=== PATIENT | male | born 1945 | race Caucasian/White ===

== ENCOUNTER 2019-06-25 12:12 | Inpatient (IN) | payer MEDICARE ==
[~2019-06-25] VITALS: Ht 180.3 cm; Wt 80.0 kg
[~2019-06-25 12:12] MED LIST: FLEC100T2 PO; LOSA25TA96 PO; OMEP20TA5 PO; RIVA10TA PO
--- NOTE | 2019-06-25 12:30 | NUR ---
pt to CT
--- NOTE | 2019-06-25 12:36 | NUR ---
pt back from CT
--- NOTE | 2019-06-25 12:46 | NUR ---
Dr. Baumann at bedside to armando pt
--- NOTE | 2019-06-25 12:56 | NUR ---
pt is resting quietly on gurney, no neuro deficits, still c/o left arm tingling, steristrips to upper left chest are dry and intact, no swelling, no redness, no drainage, healing well
[2019-06-25 13:01] LABS: BASOPHILS % (AUTO) 0.5 % (0-1); EOSINOPHILS # (AUTO) 0.1 X10'3 (0-0.9); EOSINOPHILS % (AUTO) 1.1 % (0-6); HEMATOCRIT 43.7 % (42.0-52.0); HEMOGLOBIN 15.1 g/dl (14.0-17.9); LYMPHOCYTES # (AUTO) 1.7 X10'3 (1.1-4.8); LYMPHOCYTES % (AUTO) 24.4 % (21-51); MEAN CORPUSCULAR HEMOGLOBIN 31.3 PG (27.0-31.0); MEAN CORPUSCULAR HGB CONC 34.5 g/dL (33.0-36.5); MEAN CORPUSCULAR VOLUME 90.8 FL (78-98); MEAN PLATELET VOLUME 8.4 FL (7.4-10.4); MONOCYTES # (AUTO) 0.6 X10'3 (0-0.9); MONOCYTES % (AUTO) 8.8 % (2-12); NEUTROPHILS # (AUTO) 4.5 X10'3 (1.8-7.7); NEUTROPHILS % (AUTO) 65.2 % (42-75); PLATELET COUNT 238 X10'3 (140-440); RED BLOOD COUNT 4.81 X10'6 (4.70-6.10); RED CELL DISTRIBUTION WIDTH 13.7 % (11.5-14.5); WHITE BLOOD COUNT 6.9 X10'3 (4.5-11.0)
[2019-06-25 13:12] LABS: ALANINE AMINOTRANSFERASE 31 U/L (12-78); ALBUMIN 3.6 G/DL (3.4-5.0); ALKALINE PHOSPHATASE 72 IU/L (46-116); ANION GAP 7 (8-16); ASPARTATE AMINO TRANSFERASE 18 U/L (10-37); BILIRUBIN,TOTAL 1.4 MG/DL (0.1-1.0); BLOOD UREA NITROGEN 14 MG/DL (7-18); BUN/CREATININE RATIO 13.9 (5.4-32.0); CHLORIDE 107 MMOL/L (99-107); CREATININE 1.01 MG/DL (0.60-1.10); GLUCOSE 81 MG/DL (70-104); POTASSIUM 4.3 MMOL/L (3.5-5.1); SODIUM 141 MMOL/L (135-145); TOTAL CARBON DIOXIDE 27.5 MMOL/L (24-32); TOTAL PROTEIN 7.2 G/DL (6.4-8.2); eGFR 72 ML/MIN
[2019-06-25 13:16] LABS: PARTIAL THROMBOPLASTIN TIME 38 SECONDS (22-32)
[2019-06-25 13:18] LABS: TROPONIN I < 0.04 NG/ML (0.0-0.05)
[2019-06-25] MEDS ORDERED: ondansetron/PF 4mg/2ml inj IV PRN (13:45)
[2019-06-25] MEDS ORDERED: mag hydrox/Alum hydrox/simeth 30ml oral suspension PO PRN (13:45)
[2019-06-25] MEDS ORDERED: magnesium hydroxide 30ml (MOM) UD suspension PO PRN (13:45)
[2019-06-25] MEDS ORDERED: acetaminophen 325mg tablet PO PRN (13:45)
[2019-06-25 14:21] LABS: CHOL/HDL RATIO 7.9 (0.00-4.99); CHOLESTEROL 230 MG/DL (0-200); HDL CHOLESTEROL 29 MG/DL (35-60); LDL CHOLESTEROL 168 MG/DL (50-100); TRIGLYCERIDES 268 MG/DL (20-135)
--- NOTE | 2019-06-25 14:38 | NUR ---
Pt arrived on the floor, tucked in. Pt is A & O X4 and in good spirits.
[2019-06-25 15:03] VITALS: BP_SYST 154; BP_SYST 157; BP_SYST 173; BP_DIAS 102; BP_DIAS 103; BP_DIAS 114
[2019-06-25] MEDS: normal saline 1000ml 1,000 ML IV SCH ×2 (15:16→23:42)
[2019-06-25 15:36] VITALS: BP 173/103
[2019-06-25 18:00] VITALS: BP 140/89
--- NOTE | 2019-06-25 18:27 | NUR ---
Problems reprioritized. Patient report given, questions answered & plan of care reviewed with Argelia Finn RN.
[2019-06-25 20:00] VITALS: BP_SYST 117; BP_SYST 119; BP_SYST 126; BP_DIAS 65; BP_DIAS 66; BP_DIAS 68
[2019-06-25] MEDS ORDERED: rivaroxaban 20mg tablet PO SCH (21:00)
--- NOTE | 2019-06-25 22:21 | NUR ---
patient refusing IV fluids at this time. drinking well. left his saline locked. aware.
[2019-06-26 02:09] VITALS: BP 136/85
--- NOTE | 2019-06-26 06:12 | NUR ---
Problems reprioritized. Patient report given, questions answered & plan of care reviewed with GEORGE Pastrana and GEORGE Trejo.
--- NOTE | 2019-06-26 06:37 | NUR ---
Patient in room ORTHO 4017. I have received report from Argelia VAZQUEZ and had the opportunity to ask questions and assume patient care.
[2019-06-26 06:53] VITALS: BP 139/87
[2019-06-26 08:00] VITALS: BP_SYST 107; BP_SYST 110; BP_SYST 114; BP_DIAS 67; BP_DIAS 76; BP_DIAS 77
[2019-06-26] MEDS ORDERED: aspirin 81mg tablet.DR PO SCH (08:00)
[2019-06-26] MEDS ORDERED: atorvastatin 20mg tablet PO SCH (08:00)
[2019-06-26] MEDS: normal saline 1000ml 1,000 ML IV SCH (08:35)
[2019-06-26 10:03] VITALS: BP 114/76
[2019-06-26] MEDS ORDERED: iohexol 350MG/ML 100ml bottle IV ONE (10:03)
[2019-06-26] MEDS ORDERED: ATOR20TA PO (13:41)
[2019-06-26] MEDS ORDERED: ASPI81TA52 PO (13:41)
--- NOTE | 2019-06-26 14:00 | NUR ---
I have reviewed and agree with all interventions and assessments performed and documented by Neil VAZQUEZ.
--- NOTE | 2019-06-26 14:16 | NUR ---
Pt discharged home safely. had all materials with patient with copies of hosp records
== END 2019-06-26 14:05 | disposition home or self-care (01) | DRG 69 ==
LOC: ER 12:13 → ORTHO 4S 14:40
PROVIDERS: ADMIT Family Medicine; ATTEND Family Medicine
PROC: B3251ZZ Computerized Tomography (CT Scan) of Bilateral Common Carotid Arteries using Low Osmolar Contrast (ICD-10-PCS; principal; 2019-06-26)
PROC: B32G1ZZ Computerized Tomography (CT Scan) of Bilateral Vertebral Arteries using Low Osmolar Contrast (ICD-10-PCS; 2019-06-26)
PROC: B3281ZZ Computerized Tomography (CT Scan) of Bilateral Internal Carotid Arteries using Low Osmolar Contrast (ICD-10-PCS; 2019-06-26)
DX: G45.9 Transient cerebral ischemic attack, unspecified (principal); I10 Essential (primary) hypertension; E78.00 Pure hypercholesterolemia, unspecified; I48.91 Unspecified atrial fibrillation; Z86.73 Personal history of transient ischemic attack (TIA), and cerebral infarction without residual deficits; Z95.0 Presence of cardiac pacemaker
CPT/HCPCS: 36415; 70450; 70496; 71045; 80053; 80061; 84484; 85025; 85610; 85730; 87081; 93005; 93880; 97116; 97161; 97530; 99285; G0378; J7030; Q9967

== ENCOUNTER 2019-11-26 17:43 | Inpatient (IN) | payer MEDICARE ==
[~2019-11-26] VITALS: Ht 180.3 cm; Wt 76.4 kg
[~2019-11-26 17:43] MED LIST changes: +ASPI81TA52 PO; +ATOR20TA PO; -FLEC100T2 PO; -OMEP20TA5 PO
--- NOTE | 2019-11-26 18:45 | NUR ---
Dr. Brunner notified blood sugar 62 (stated to give juice), and that patient reports he did not hit head.
[2019-11-26 19:08] LABS: BASOPHILS # (AUTO) 0.1 X10'3 (0-0.2); BASOPHILS % (AUTO) 0.7 % (0-1); EOSINOPHILS # (AUTO) 0.2 X10'3 (0-0.9); EOSINOPHILS % (AUTO) 2.5 % (0-6); HEMATOCRIT 44.9 % (42.0-52.0); HEMOGLOBIN 15.4 g/dl (14.0-17.9); LYMPHOCYTES % (AUTO) 33.7 % (21-51); MEAN CORPUSCULAR HEMOGLOBIN 30.8 PG (27.0-31.0); MEAN CORPUSCULAR HGB CONC 34.3 g/dL (33.0-36.5); MEAN CORPUSCULAR VOLUME 89.9 FL (78-98); MEAN PLATELET VOLUME 8.4 FL (7.4-10.4); MONOCYTES % (AUTO) 10.7 % (2-12); NEUTROPHILS # (AUTO) 4.7 X10'3 (1.8-7.7); NEUTROPHILS % (AUTO) 52.4 % (42-75); PLATELET COUNT 236 X10'3 (140-440); RED BLOOD COUNT 4.99 X10'6 (4.70-6.10); RED CELL DISTRIBUTION WIDTH 13.5 % (11.5-14.5)
[2019-11-26 19:17] LABS: D-DIMER 0.21 MG/L FEU (0-0.50); PARTIAL THROMBOPLASTIN TIME 29 SECONDS (22-32)
--- NOTE | 2019-11-26 19:18 | NUR ---
Lanagan sandwich provided, okay per Dr. Brunner.
[2019-11-26 20:00] LABS: ALANINE AMINOTRANSFERASE 32 U/L (12-78); ALBUMIN 3.9 G/DL (3.4-5.0); ALBUMIN/GLOBULIN RATIO 1.1 (1.1-1.5); ALKALINE PHOSPHATASE 91 IU/L (46-116); ANION GAP 7 (8-16); ASPARTATE AMINO TRANSFERASE 24 U/L (10-37); BLOOD UREA NITROGEN 11 MG/DL (7-18); BUN/CREATININE RATIO 11.2 (5.4-32.0); CALCIUM 9.8 MG/DL (8.5-10.1); CHLORIDE 107 MMOL/L (99-107); CREATININE 0.98 MG/DL (0.60-1.10); GLUCOSE 67 MG/DL (70-104); POTASSIUM 4.3 MMOL/L (3.5-5.1); SODIUM 144 MMOL/L (135-145); TOTAL CARBON DIOXIDE 30.1 MMOL/L (24-32); TOTAL PROTEIN 7.6 G/DL (6.4-8.2); eGFR 74 ML/MIN
[2019-11-26 20:02] LABS: TROPONIN I < 0.04 NG/ML (0.0-0.05)
--- NOTE | 2019-11-26 20:27 | NUR ---
Attempting to complete med rec, patient does not know all medications he takes.
[2019-11-26] MEDS ORDERED: METO25TA6 PO (20:31)
[2019-11-26] MEDS ORDERED: OMEP40CA13 PO (20:33)
--- NOTE | 2019-11-26 20:33 | NUR ---
Able to access prescription history, med rec completed. Patient believes med rec accurate, will notify staff if he can remember any other meds he takes.
[2019-11-26] MEDS ORDERED: iohexol 350MG/ML 100ml bottle IV ONE (22:29)
[2019-11-26] MEDS ORDERED: iohexol 350 MG/ML 50ML vial IV ONE (22:31)
[2019-11-27] VITALS (7 sets, daily range): BP systolic 127–156; BP diastolic 74–100
[2019-11-27] MEDS ORDERED: ATOR20TA PO (00:19)
[2019-11-27] MEDS ORDERED: mag hydrox/Alum hydrox/simeth 30ml oral suspension PO PRN (01:00)
[2019-11-27] MEDS ORDERED: acetaminophen 325mg tablet PO PRN (01:00)
[2019-11-27] MEDS ORDERED: magnesium hydroxide 30ml (MOM) UD suspension PO PRN (01:00)
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
--- NOTE | 2019-11-27 02:00 | NUR ---
Patient arrived to [facility] room 318 via wheelchair with all known belongings. patient ambulated to the bed. 2 RN skin check complete. patient placed on tele box 29. MRSA Nasal collected.
--- NOTE | 2019-11-27 06:00 | NUR ---
Patient in room MED 318. I have received report from GEORGE Templeton and had the opportunity to ask questions and assume patient care.
--- NOTE | 2019-11-27 06:19 | NUR ---
Problems reprioritized. Patient report given, questions answered & plan of care reviewed with GEORGE Pierce.
[2019-11-27] MEDS ORDERED: pantoprazole 40mg Tablet.DR PO PRN (08:00)
--- NOTE | 2019-11-27 11:03 | NUR ---
melina called, needing local rep to interrogate PPM, informed rep will call back with ETA
--- NOTE | 2019-11-27 18:00 | NUR ---
Patient in room MED 310. I have received report from Kari VAZQUEZ and had the opportunity to ask questions and assume patient care.
--- NOTE | 2019-11-27 18:10 | NUR ---
Problems reprioritized. Patient report given, questions answered & plan of care reviewed with GEORGE Altamirano.
--- NOTE | 2019-11-27 18:20 | NUR ---
dr. Yo to discharge, no assessments or interventions performed, report only at shift change
--- NOTE | 2019-11-27 18:58 | NUR ---
REVIEWED ALL DISCHARGE INSTRUCTIONS WITH PATIENT. ALL QUESTIONS ANSWERED. PATIENT GIVEN DISCHARGE PACKET. IV D/C'D, TELE MONITOR D/C'D. ALL BELONGINGS WITH PATIENT ON D/C. PATIENT WALKED OUT BY BOBBY VAZQUEZ.
[2019-11-27] MEDS ORDERED: rivaroxaban 10mg tablet PO SCH (21:00)
[2019-11-27] MEDS ORDERED: losartan 25mg tablet PO SCH (21:00)
--- NOTE | 2019-11-29 15:00 | NUR ---
Case Management DC follow up: Pt number, disconnected. Friend number/no answer, no identifier.
== END 2019-11-27 18:58 | disposition home or self-care (01) | DRG 312 ==
LOC: ER 17:46 → ED HOLD 11-27 01:00 → MED 3N 11-27 01:50
PROVIDERS: ADMIT Internal Medicine; ATTEND Family Medicine
PROC: B3251ZZ Computerized Tomography (CT Scan) of Bilateral Common Carotid Arteries using Low Osmolar Contrast (ICD-10-PCS; principal; 2019-11-26)
PROC: B32G1ZZ Computerized Tomography (CT Scan) of Bilateral Vertebral Arteries using Low Osmolar Contrast (ICD-10-PCS; 2019-11-26)
PROC: B3281ZZ Computerized Tomography (CT Scan) of Bilateral Internal Carotid Arteries using Low Osmolar Contrast (ICD-10-PCS; 2019-11-26)
PROC: B32T1ZZ Computerized Tomography (CT Scan) of Left Pulmonary Artery using Low Osmolar Contrast (ICD-10-PCS; 2019-11-26)
PROC: B3201ZZ Computerized Tomography (CT Scan) of Thoracic Aorta using Low Osmolar Contrast (ICD-10-PCS; 2019-11-26)
PROC: B32S1ZZ Computerized Tomography (CT Scan) of Right Pulmonary Artery using Low Osmolar Contrast (ICD-10-PCS; 2019-11-26)
DX: R55 Syncope and collapse (principal); M79.10 Myalgia, unspecified site; I10 Essential (primary) hypertension; I48.91 Unspecified atrial fibrillation; T44.7X5A Adverse effect of beta-adrenoreceptor antagonists, initial encounter; Z79.01 Long term (current) use of anticoagulants; Z86.73 Personal history of transient ischemic attack (TIA), and cerebral infarction without residual deficits; Z95.0 Presence of cardiac pacemaker; Y92.89 Other specified places as the place of occurrence of the external cause
CPT/HCPCS: 36415; 70450; 70496; 70498; 71045; 71275; 80053; 82948; 84484; 85025; 85379; 85610; 85730; 87081; 93005; 93306; 99285; G0378; Q9967

== ENCOUNTER 2022-10-22 12:53 | Observation (INO) | payer MEDICARE ==
[~2022-10-22] VITALS: Ht 177.8 cm; Wt 79.5 kg
[~2022-10-22 12:53] MED LIST changes: -ASPI81TA52 PO; +OMEP40CA21 PO
[2022-10-22 13:10] LABS: BASOPHILS % (AUTO) 0.3 % (0-1); EOSINOPHILS # (AUTO) 0.2 X10'3 (0-0.9); EOSINOPHILS % (AUTO) 2.5 % (0-6); HEMATOCRIT 44.9 % (42.0-52.0); HEMOGLOBIN 14.8 g/dl (14.0-17.9); LYMPHOCYTES # (AUTO) 2.6 X10'3 (1.1-4.8); LYMPHOCYTES % (AUTO) 29.7 % (21-51); MEAN CORPUSCULAR HEMOGLOBIN 30.3 PG (27.0-31.0); MEAN CORPUSCULAR HGB CONC 32.9 g/dL (33.0-36.5); MEAN CORPUSCULAR VOLUME 92.1 FL (78-98); MEAN PLATELET VOLUME 8.1 FL (7.4-10.4); MONOCYTES # (AUTO) 0.9 X10'3 (0-0.9); MONOCYTES % (AUTO) 10.2 % (2-12); NEUTROPHILS % (AUTO) 57.3 % (42-75); PLATELET COUNT 263 X10'3 (140-440); RED BLOOD COUNT 4.88 X10'6 (4.70-6.10); RED CELL DISTRIBUTION WIDTH 13.7 % (11.5-14.5); WHITE BLOOD COUNT 8.6 X10'3 (4.5-11.0)
[2022-10-22 13:35] LABS: ALANINE AMINOTRANSFERASE 21 U/L (12-78); ALBUMIN 3.8 G/DL (3.4-5.0); ALKALINE PHOSPHATASE 96 IU/L (46-116); ANION GAP 8 (8-16); ASPARTATE AMINO TRANSFERASE 25 U/L (10-37); BILIRUBIN,TOTAL 1.8 MG/DL (0.1-1.0); BLOOD UREA NITROGEN 15 MG/DL (7-18); BUN/CREATININE RATIO 13.9 (5.4-32.0); CALCIUM 9.3 MG/DL (8.5-10.1); CHLORIDE 104 MMOL/L (99-107); CREATININE 1.08 MG/DL (0.60-1.10); GLUCOSE 84 MG/DL (70-104); POTASSIUM 3.9 MMOL/L (3.5-5.1); SODIUM 140 MMOL/L (135-145); TOTAL CARBON DIOXIDE 28.3 MMOL/L (24-32); TOTAL PROTEIN 7.7 G/DL (6.4-8.2); eGFR 66 ML/MIN
[2022-10-22 13:40] LABS: MAGNESIUM 2.2 MG/DL (1.5-2.4)
[2022-10-22 13:41] LABS: APTT 29 SECONDS (22-32)
[2022-10-22] MEDS ORDERED: iohexol 350MG/ML 100ml bottle IV ONE (17:47)
[2022-10-22] MEDS ORDERED: APIX5TAB3 PO (18:54)
[2022-10-22] MEDS: PERFLUTREN PROTEIN-A MICROSPHR (Optison) 0.22 MG/ML 3ML VIAL IV ONE (21:00)
[2022-10-22] MEDS ORDERED: potassium Cl 20 mEq SR tablet PO PRN ×2 (21:00)
[2022-10-22] MEDS ORDERED: magnesium 4gm in 100ml NS 100 ML IV PRN (21:00)
[2022-10-22] MEDS ORDERED: magnesium Cl slow-release 64mg tablet PO PRN (21:00)
[2022-10-22] MEDS: normal saline 1000ml 1,000 ML IV SCH (21:00)
[2022-10-22] MEDS ORDERED: ondansetron/PF 4mg/2ml inj IV PRN (21:00)
[2022-10-22] MEDS ORDERED: potassium Cl 40MEQ/1/2NS 520ml 520 ML IV PRN (21:00)
[2022-10-22] MEDS ORDERED: acetaminophen 325mg tablet PO PRN (21:00)
[2022-10-23 05:58] LABS: ALBUMIN 3.1 G/DL (3.4-5.0); ANION GAP 6 (8-16); BLOOD UREA NITROGEN 16 MG/DL (7-18); BUN/CREATININE RATIO 14.3 (5.4-32.0); CALCIUM 8.7 MG/DL (8.5-10.1); CHLORIDE 110 MMOL/L (99-107); CREATININE 1.12 MG/DL (0.60-1.10); GLUCOSE 101 MG/DL (70-104); MAGNESIUM 2.1 MG/DL (1.5-2.4); SODIUM 142 MMOL/L (135-145); TOTAL CARBON DIOXIDE 26.1 MMOL/L (24-32); eGFR 63 ML/MIN
[2022-10-23 06:08] LABS: BASOPHILS % (AUTO) 0.4 % (0-1); EOSINOPHILS # (AUTO) 0.3 X10'3 (0-0.9); EOSINOPHILS % (AUTO) 4.1 % (0-6); HEMATOCRIT 40.4 % (42.0-52.0); HEMOGLOBIN 13.9 g/dl (14.0-17.9); LYMPHOCYTES # (AUTO) 1.9 X10'3 (1.1-4.8); LYMPHOCYTES % (AUTO) 29.4 % (21-51); MEAN CORPUSCULAR HEMOGLOBIN 31.4 PG (27.0-31.0); MEAN CORPUSCULAR HGB CONC 34.4 g/dL (33.0-36.5); MEAN CORPUSCULAR VOLUME 91.1 FL (78-98); MEAN PLATELET VOLUME 8.4 FL (7.4-10.4); MONOCYTES # (AUTO) 0.6 X10'3 (0-0.9); MONOCYTES % (AUTO) 9.9 % (2-12); NEUTROPHILS # (AUTO) 3.6 X10'3 (1.8-7.7); NEUTROPHILS % (AUTO) 56.2 % (42-75); PLATELET COUNT 230 X10'3 (140-440); RED BLOOD COUNT 4.43 X10'6 (4.70-6.10); RED CELL DISTRIBUTION WIDTH 13.7 % (11.5-14.5); WHITE BLOOD COUNT 6.4 X10'3 (4.5-11.0)
[2022-10-23] MEDS: K and/or MAG REPLACEMENT MC SCH (06:16)
[2022-10-23 09:14] LABS: CHOL/HDL RATIO 4.5 (0.00-4.99); CHOLESTEROL 156 MG/DL (0-200); HDL CHOLESTEROL 35 MG/DL (35-60); LDL CHOLESTEROL 100 MG/DL (50-100); TRIGLYCERIDES 111 MG/DL (20-135)
[2022-10-23 10:30] VITALS: BP 150/83
[2022-10-23] MEDS ORDERED: pantoprazole 40mg Tablet.DR PO PRN (11:25)
[2022-10-23] MEDS ORDERED: ATOR40TA PO (16:07)
[2022-10-23] MEDS ORDERED: ASPI-1265 PO (16:07)
[2022-10-23] MEDS ORDERED: apixaban 5mg tablet PO SCH (20:00)
[2022-10-23] MEDS ORDERED: atorvastatin 20mg tablet PO SCH (21:00)
== END 2022-10-23 17:05 | disposition home or self-care (01) ==
LOC: ER 12:54 → ED HOLD 21:06 → SUR 3N 10-23 10:25
PROVIDERS: ADMIT Internal Medicine; ATTEND Internal Medicine
DX: G45.9 Transient cerebral ischemic attack, unspecified (principal); I48.91 Unspecified atrial fibrillation; E78.5 Hyperlipidemia, unspecified; I10 Essential (primary) hypertension; I25.10 Atherosclerotic heart disease of native coronary artery without angina pectoris; N17.0 Acute kidney failure with tubular necrosis; Z79.01 Long term (current) use of anticoagulants; Z95.0 Presence of cardiac pacemaker; Z86.73 Personal history of transient ischemic attack (TIA), and cerebral infarction without residual deficits; Z79.899 Other long term (current) drug therapy
CPT/HCPCS: 36415; 70450; 70496; 70498; 70551; 71045; 80048; 80053; 80061; 82948; 83036; 83735; 83880; 84443; 84484; 85025; 85610; 85730; 87081; 92508; 92616; 93005; 93306; 96360; 96361; 97161; 97530; 99285; G0378; J3490; J7030; Q9967

== ENCOUNTER 2023-11-11 11:56 | Emergency (ER) | payer MEDICARE ==
[~2023-11-11] VITALS: Ht 177.8 cm; Wt 79.1 kg
[~2023-11-11 11:56] MED LIST changes: +APIX5TAB3 PO; -ATOR20TA PO; +LOSA-415 PO; -LOSA25TA96 PO; -RIVA10TA PO
[2023-11-11 13:05] LABS: BASOPHILS % (AUTO) 0.2 % (0-1); EOSINOPHILS # (AUTO) 0.1 X10'3 (0-0.9); EOSINOPHILS % (AUTO) 0.5 % (0-6); HEMATOCRIT 42.4 % (42.0-52.0); HEMOGLOBIN 14.1 g/dl (14.0-17.9); LYMPHOCYTES # (AUTO) 1.1 X10'3 (1.1-4.8); LYMPHOCYTES % (AUTO) 9.6 % (21-51); MEAN CORPUSCULAR HEMOGLOBIN 30.5 PG (27.0-31.0); MEAN CORPUSCULAR HGB CONC 33.2 g/dL (33.0-36.5); MEAN CORPUSCULAR VOLUME 91.9 FL (78-98); MEAN PLATELET VOLUME 8.5 FL (7.4-10.4); MONOCYTES # (AUTO) 0.6 X10'3 (0-0.9); MONOCYTES % (AUTO) 5.6 % (2-12); NEUTROPHILS # (AUTO) 9.5 X10'3 (1.8-7.7); NEUTROPHILS % (AUTO) 84.1 % (42-75); PLATELET COUNT 242 X10'3 (140-440); RED BLOOD COUNT 4.61 X10'6 (4.70-6.10); RED CELL DISTRIBUTION WIDTH 13.6 % (11.5-14.5); WHITE BLOOD COUNT 11.3 X10'3 (4.5-11.0)
[2023-11-11 13:24] LABS: ALANINE AMINOTRANSFERASE 20 U/L (12-78); ALBUMIN 3.1 G/DL (3.4-5.0); ALBUMIN/GLOBULIN RATIO 0.9 (1.1-1.5); ALKALINE PHOSPHATASE 80 IU/L (46-116); ANION GAP 9 (8-16); ASPARTATE AMINO TRANSFERASE 20 U/L (10-37); BILIRUBIN,TOTAL 1.9 MG/DL (0.1-1.0); BLOOD UREA NITROGEN 17 MG/DL (7-18); BUN/CREATININE RATIO 14.5 (10.0-20.0); CALCIUM 8.9 MG/DL (8.5-10.1); CHLORIDE 105 MMOL/L (99-107); CREATININE 1.17 MG/DL (0.60-1.10); GLUCOSE 115 MG/DL (70-104); POTASSIUM 3.9 MMOL/L (3.5-5.1); SODIUM 141 MMOL/L (135-145); TOTAL CARBON DIOXIDE 27.4 MMOL/L (24-32); TOTAL PROTEIN 6.7 G/DL (6.4-8.2); eCRCL 53 ML/MIN; eGFR 60 ML/MIN
[2023-11-11 13:34] LABS: PRO BRAIN NATRIURETIC PEPTIDE 738 PG/ML (0-450)
[2023-11-11 17:02] VITALS: TEMP 97.6
[2023-11-11 18:24] VITALS: BP 149/103; PULSE 80; RESP 17; O2SAT 98
== END 2023-11-11 18:25 | disposition home or self-care (01) ==
LOC: ER 11:56
DX: R55 Syncope and collapse (principal); H53.9 Unspecified visual disturbance; I48.91 Unspecified atrial fibrillation; E78.00 Pure hypercholesterolemia, unspecified; I10 Essential (primary) hypertension; Z86.73 Personal history of transient ischemic attack (TIA), and cerebral infarction without residual deficits; Z95.5 Presence of coronary angioplasty implant and graft; Z79.899 Other long term (current) drug therapy
CPT/HCPCS: 36415; 71045; 80053; 83880; 84484; 85025; 93005; 99285

== ENCOUNTER 2023-12-04 00:08 | Outpatient (CLI) | payer MEDICARE ==
[2023-12-04] VITALS (21 sets, daily range): BP systolic 130–157; BP diastolic 69–105; PULSE 70–80
== END 2023-12-04 23:59 | disposition home or self-care (01) ==
LOC: CARD DIAG 00:08
PROVIDERS: ATTEND Internal Medicine Interventional Cardiology
DX: R55 Syncope and collapse (principal)
CPT/HCPCS: 93660